=== PATIENT | female | born 1955 | race Caucasian/White ===

== ENCOUNTER 2019-12-18 11:42 | Emergency (ER) | payer OTHER, SELFPAY ==
[2019-12-18 11:51] VITALS: BP 168/82; PULSE 94; RESP 16; TEMP 36.9; O2SAT 98
--- NOTE | 2019-12-18 12:20 | ED.GENADULT ---
HPI - General Adult General Chief complaint: Skin/Abscess/Foreign Body Stated complaint: rash around waist Time Seen by Provider: 12/18/19 12:20 Source: patient and RN notes reviewed Mode of arrival: ambulatory Limitations: no limitations History of Present Illness HPI narrative: 64-year-old female presents with complains of diffused right upper and lower abdomen with redness, swelling, and warmth for the past 5 days. Netta says she could have been bitten by an insect 5 days ago but did not see anything. Area of redness, swelling, and warmth has growing over the pass 4 days. Benadryl by mouth, last 12/17/19 with some relief and Cortisone cream with little relief. Radiation of warmth, redness, and swelling. Exacerbating factors consists of scratching. Denies tenderness. Denies open areas or drainage. The patient reports they have not been diagnosed with COVID-19. The patient reports they are not waiting for the results of a COVID-19 lab test. The patient reports they do not have fever, chills, weakness, fatigue, myalgia, or facial swelling. The patient reports they do not have a new or worsening cough or shortness of breath. Denies chest pain. The patient reports they do not have any rhinorrhea, congestion, sore throat, nausea, vomiting, abdominal pain, and diarrhea. Tolerating po intake well. Denies recent traveling. Denies concerns for COVID-19 or exposures been home since [id number] order except for essential household needs, working, and return home. At this time, patient is not suspected of having COVID-19. Some parts of this dictation were generated by voice recognition software and may contain typographical and/or grammatical inaccuracies. Related Data Home Medications Medication Instructions Recorded Confirmed apixaban [Eliquis] 5 mg PO BID 12/18/19 12/18/19 Allergies Allergy/AdvReac Type Severity Reaction Status Date / Time Penicillins Allergy Hives Verified 12/18/19 12:00 Review of Systems Review of Systems: Narrative: CONSTITUTIONAL: Denies fever, chills, sweats. EYES: Denies visual changes, redness, discharge. ENT: Denies rhinorrhea, congestion, sore throat, otalgia. CARDIOVASCULAR: Denies chest pain, palpitations, edema. RESPIRATORY: Denies dyspnea, wheezing, cough. GASTROINTESTINAL: Denies abdominal pain, nausea, vomiting, diarrhea. GENITOURINARY: Denies dysuria, hematuria, abnormal discharge. SKIN: Complains of diffused right upper and lower abdomen with redness, swelling, and warmth. MUSCULOSKELETAL: Denies acute back pain, joint pain, or myalgia. NEUROLOGIC: Denies numbness or focal weakness. PSYCHIATRIC: Denies anxiety or depression. All systems reviewed & are unremarkable except as noted in HPI and below. [facility] Past Medical History Medical History (Updated 12/18/19 @ 13:12 by SHILO Sosa) delivery delivered Hypertension Pulmonary embolism Surgical History Surgical History (Updated 12/18/19 @ 13:12 by SHILO Sosa) H/O section History of hysterectomy Family History Family History (Updated 12/18/19 @ 13:12 by SHILO Sosa) Father Cerebrovascular accident Mother Heart disease Social History Social History (Updated 12/18/19 @ 13:13 by SHILO Sosa) Substance use: never Living arrangements: with family Occupation/Education: retired Gender identity (if verbalized by the patient): Female Comments At time of signature, agree with nurse past medical, surgical, social, and family history. There is no relevant family history pertinent to the presenting complaint. Exam Narrative: Exam Narrative: GENERAL: This is a well-nourished, well-developed patient, in no apparent distress. HEAD: normocephalic, atraumatic. EYES: PERRL. Sclera clear/white. Vision is grossly intact. CARDIOVASCULAR: Regular rate and rhythm without murmurs, gallops, or rubs. RESPIRATORY: Clear to auscultation. B
== END 2019-12-18 12:56 | disposition home or self-care (01) ==
PROVIDERS: Emergency Provider Nurse Practitioner Family; PCP Family Medicine
DX: L03.311 Cellulitis of abdominal wall (principal); Z79.01 Long term (current) use of anticoagulants; Z86.711 Personal history of pulmonary embolism; R03.0 Elevated blood-pressure reading, without diagnosis of hypertension
CPT/HCPCS: 99213; G0463

== ENCOUNTER → 2021-03-05 12:24 | Outpatient (CLI) | payer MEDICARE, OTHER, SELFPAY ==
--- NOTE | ~2021-03-05 | MM_ITS ---
EXAMINATION: MM screening yo BI w karlee HISTORY: Screening TECHNIQUE: Craniocaudal and mediolateral oblique 3-D tomosynthesis images were obtained and synthetic 2-D images were generated. CAD analysis was submitted and interpreted. COMPARISON: Comparison to multiple prior studies sequentially, with oldest reviewed study dated 03/10. BREAST PARENCHYMAL COMPOSITION: There are scattered areas of fibroglandular density. FINDINGS: Bilateral breast asymmetries are stable. There is no evidence of suspicious mass, calcifica tion, or architectural distortion to suggest malignancy in either breast. There has been no suspiciou s interval change. IMPRESSION: 1. No mammographic evidence of malignancy. 2. Recommend routine screening mammography in one year. BI-RADS Category 2: Benign finding(s). Reviewed, dictated and finalized at location A.
--- NOTE | ~2021-03-05 | DEXA_ITS ---
Bone Density Report Name: Nicky Beauchamp Age: 66 Sex: Female Ethnicity: White Date of : 1955 Indication: postmenopausal; screening for osteoporosis; height loss; hysterectomy; Referring Provider: IRA BARRETT Study: Bone densitometry was performed. Exam Date: March 05, 2021 Accession number: [id number] Bone Density: Region BMD T-score Z-score Classification AP Spine (L1-L4) 1.335 2.6 4.4 Normal Femoral Neck (Left) 1.076 2.0 3.6 Normal Total Hip (Left) 1.324 3.1 4.4 Normal Femoral Neck (Right) 1.043 1.7 3.3 Normal Total Hip (Right) 1.212 2.2 3.4 Normal Total Hip Mean 1.268 2.7 3.9 Normal World Health Organization criteria for BMD impression classify patients as: Normal (T-score at or above -1.0), Osteopenia (T-score between -1.0 and -2.5), or Osteoporosis (T-score at or below -2.5). 10-year Fracture Risk: FRAX not reported because: All T-scores for Spine Total, Hip Total, Femoral Neck at or above -1.0 Previous Exams: Region Exam Age BMD T-score BMD Change BMD Change Date g/cm2 vs Baseline vs Previous AP Spine(L1-L4) 03/05/2021 66 1.335 2.6 0.047 0.045 09/07/2013 58 1.290 2.2 0.002 0.002 05/30/2008 53 1.288 2.2 Total Hip(Left) 03/05/2021 66 1.324 3.1 -0.004 0.009 09/07/2013 58 1.315 3.1 -0.013 -0.013 05/30/2008 53 1.328 3.2 Total Hip(Right) 03/05/2021 66 1.212 2.2 -0.011 0.021 09/07/2013 58 1.192 2.0 -0.032* -0.032* 05/30/2008 53 1.223 2.3 *Denotes significance at 95% confidence level, LSC for AP Spine = 0.022 g/cm2, LSC for Total Hip = 0.027 g/cm2 Clinical Information Provided by Patient: Has the following medical conditions: Hysterectomy Patient maximum height was 67 Menopause Age: 45 No regular weight bearing exercise Drinks caffeinated beverages Onset of menses at age 16 Number of children 3 Impression: The patient has normal bone mass. No significant bone loss was observed. Discussion: LOW RISK OF FRACTURE; BONE DENSITY IS WELL ABOVE THE MINIMUM DESIRABLE LEVEL AND ABOVE AVERAGE FOR AGE AND SEX AT ALL SKELETAL SITES TESTED. This person's bone density is above expected limits for age and sex. This is rarely clinically significant, but should be pursued if there are significant musculoskeletal complaints. The patient should follow a healthful lifestyle (good
== END ==
PROVIDERS: PCP Family Medicine; Visit Provider Family Medicine
DX: Z12.31 Encounter for screening mammogram for malignant neoplasm of breast (principal); Z78.0 Asymptomatic menopausal state
CPT/HCPCS: 77063; 77067; 77080

== ENCOUNTER → 2021-04-30 11:32 | Outpatient (CLI) | payer MEDICARE, OTHER, SELFPAY ==
--- NOTE | ~2021-04-30 | US_ITS ---
EXAMINATION: US renal BI DATE: 04/30/2021 12:10 INDICATION: Chronic kidney disease. TECHNIQUE: Multiple ultrasound grayscale images of the kidneys were obtained. COMPARISON: CT abdomen and pelvis 10/14/2012 FINDINGS: The right kidney measures 9.5 x 4.0 x 3.9 cm. The left kidney measures 9.7 x 4.2 x 5.1 cm. There is c ortical thinning of the kidneys. The kidneys demonstrate normal parenchymal echogenicity. There is no hydronephrosis. The bladder is normal. IMPRESSION: 1. Mild atrophy of the kidneys. No hydronephrosis. Reviewed, dictated and finalized at location A.
== END ==
PROVIDERS: PCP Family Medicine; Visit Provider Family Medicine
DX: E66.9 Obesity, unspecified (principal); N18.4 Chronic kidney disease, stage 4 (severe); I12.9 Hypertensive chronic kidney disease with stage 1 through stage 4 chronic kidney disease, or unspecified chronic kidney disease; Z68.31 Body mass index [BMI] 31.0-31.9, adult; E78.2 Mixed hyperlipidemia; R73.03 Prediabetes; N26.1 Atrophy of kidney (terminal)
CPT/HCPCS: 76775

== ENCOUNTER 2022-08-09 12:09 | Outpatient (CLI) | payer MEDICARE, OTHER, SELFPAY ==
--- NOTE | ~2022-08-09 | US_ITS ---
Duplex Sonography of the right extremity: Indication: Swelling Findings: Sagittal and transverse B-mode images as well as color-flow imaging were performed on the r ight femoral and popliteal veins. B-mode examination was done without and with compression in the tr ansverse plane. There is good visualization of the common femoral, proximal profunda femoral, superf icial femoral, greater saphenous, and popliteal veins. Right popliteal vein is noncompressible of absence of flow, compatible with DVT. The vertebral arteri es distally into the right peroneal and posterior tibial veins. The more proximal deep venous structures in the right lower extremity are patent, with normal flow an d compressibility. Impression: DVT involving the right popliteal vein, propagating distally into the right posterior tibial and gibran chandu veins. Reviewed, dictated and finalized at location M. RCANE PLANTER Impression: DVT involving the right popliteal vein, propagating distally into the right pos terior tibial and peroneal veins.
--- NOTE | ~2022-08-09 | XR_ITS ---
XR knee RT 3V DATE: 08/09/2022 12:32 INDICATION: Right knee effusion TECHNIQUE: AP, lateral, sunrise views COMPARISON: 12/29/2016 right knee FINDINGS: There is prominent distention of the suprapatellar bursa consistent with knee joint effusio n. There is mild periarticular spurring at the inferior compartment and minimal particular spurring at t he patellofemoral and lateral compartments. Knee joint spaces are relatively preserved. No fracture, dislocation, periosteal reaction or bone destruction, radiopaque intra-articular loose b safia or chondrocalcinosis. IMPRESSION: Prominent suprapatellar knee joint effusion Mild tricompartment osteoarthritis Reviewed, dictated and finalized at location L. RVISOR CONTINGENTS
== END 2022-08-09 12:10 | disposition home or self-care (01) ==
PROVIDERS: PCP Family Medicine; Visit Provider Nurse Practitioner
DX: M25.461 Effusion, right knee (principal); R60.0 Localized edema; M17.11 Unilateral primary osteoarthritis, right knee; I82.431 Acute embolism and thrombosis of right popliteal vein; I82.441 Acute embolism and thrombosis of right tibial vein; I82.451 Acute embolism and thrombosis of right peroneal vein
CPT/HCPCS: 73562; 93971

== ENCOUNTER 2022-12-30 08:50 | Outpatient (CLI) | payer MEDICARE, OTHER, SELFPAY ==
--- NOTE | ~2022-12-30 | US_ITS ---
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 TECHNIQUE: Grayscale ultrasound images without and with compression and Doppler ultrasound images of the bilateral lower extremity veins were obtained. COMPARISON: None. FINDINGS: The visualized portions of right common femoral vein, profunda (deep) femoral vein, femoral vein, pop liteal vein, peroneal veins, posterior tibial veins, and greater saphenous vein outflow are patent. T he right great saphenous vein measures 6 mm in the upper thigh, 5 mm in the lower thigh, and 6 mm in the calf. The right small saphenous vein measures 4 mm in the upper calf and 3 mm in the lower calf. No reflux. The visualized portions of left common femoral vein, profunda femoral vein, femoral vein, popliteal v ein, peroneal veins, posterior tibial veins, and greater saphenous vein outflow are patent. Left grea ter saphenous vein measures 5 mm in the upper thigh, 3 mm in the lower thigh, and 4 mm in the calf. L eft small saphenous vein measures 4 mm in the upper calf and 3 mm in the lower calf. No reflux. IMPRESSION: 1. No deep venous thrombosis. 2. No reflux. Reviewed, dictated and finalized at location A.
--- NOTE | ~2022-12-30 | US_ITS ---
EXAMINATION: US arterial ankle brachial ind DATE: 12/30/2022 10:12 INDICATION: Non-pressure chronic ulcer of right lower extremity. TECHNIQUE: Segmental pressures and plethysmographic and Doppler waveforms of the brachial and lower e xtremity arteries were obtained. COMPARISON: None. FINDINGS: Right and left brachial artery pressures of 172 mm Hg and 166 mm Hg, respectively, are concordant (no rmal difference <= 30 mmHg). The right ankle-brachial index (HARSH) could not be measured due to inability to cuff occlude the arter ies (normal >= 0.9-1.0). The right great toe-brachial index (TBI) is 0.59 (normal >= 0.65). Arterial Doppler waveforms are biphasic in posterior tibial artery and monophasic in dorsalis pedis. The left HARSH is 1.10. The left TBI is 0.48. Arterial Doppler waveforms are biphasic at the ankle. IMPRESSION: 1. Decreased TBIs, normal left HARSH, and nondiagnostic right HARSH, consistent with arterial occlusive d isease. Note that ABIs may be overestimated if arteries are calcified. Reviewed, dictated and finalized at location A. IMPRESSION: 1. Decreased TBIs, normal left HARSH, and nondiagnostic right HARSH, consistent wit h arterial occlusive disease. Note that ABIs may be overestimated if arteries a re calcified.
== END 2022-12-30 08:51 | disposition home or self-care (01) ==
LOC: ANHIMG 08:55
PROVIDERS: PCP Family Medicine
DX: L97.911 Non-pressure chronic ulcer of unspecified part of right lower leg limited to breakdown of skin (principal); I79.8 Other disorders of arteries, arterioles and capillaries in diseases classified elsewhere; I82.591 Chronic embolism and thrombosis of other specified deep vein of right lower extremity
CPT/HCPCS: 93922; 93970

== ENCOUNTER 2023-01-11 08:34 | Outpatient (CLI) | payer MEDICARE, OTHER, SELFPAY ==
--- NOTE | ~2023-01-11 | US_ITS ---
EXAMINATION: US arterial duplex LE RT DATE: 01/11/2023 09:45 INDICATION: Peripheral arterial occlusive disease TECHNIQUE: Multiple grayscale and Doppler ultrasound images of the arteries of the right lower limb w ere obtained. COMPARISON: None FINDINGS: There are triphasic arterial waveforms with brisk systolic upstrokes throughout the arteries of the r ight lower limb. There is relatively nonturbulent laminar flow extending distally to the popliteal, a nterior tibial and proximal posterior tibial arteries. No evident hemodynamically significant atheros clerotic disease. IMPRESSION: 1. No evident hemodynamically significant atherosclerotic disease with triphasic waveforms and brisk systolic upstrokes throughout the arteries of the right lower limb. Reviewed, dictated and finalized at location A. IMPRESSION: 1. No evident hemodynamically significant atherosclerotic disease with triphasi c waveforms and brisk systolic upstrokes throughout the arteries of the right l ower limb.
== END 2023-01-11 08:35 | disposition home or self-care (01) ==
PROVIDERS: PCP Family Medicine
DX: L97.911 Non-pressure chronic ulcer of unspecified part of right lower leg limited to breakdown of skin (principal); I82.591 Chronic embolism and thrombosis of other specified deep vein of right lower extremity; I73.9 Peripheral vascular disease, unspecified
CPT/HCPCS: 93926

== ENCOUNTER → 2023-06-14 13:37 | Outpatient (CLI) | payer MEDICARE, OTHER, SELFPAY ==
--- NOTE | ~2023-06-14 | MM_ITS ---
EXAMINATION: MM screening yo BI w karlee HISTORY: Screening mammogram TECHNIQUE: Craniocaudal and mediolateral oblique 3-D tomosynthesis images were obtained and synthetic 2-D images were generated. CAD analysis was submitted and interpreted. COMPARISON: 03/05/2021 bilateral screening mammogram BREAST PARENCHYMAL COMPOSITION: There are scattered areas of fibroglandular density. FINDINGS: Occasional bilateral small low-density circumscribed benign-appearing nodules. There is no evidence of suspicious mass, calcification, or architectural distortion to suggest malignancy in eith er breast. There has been no suspicious interval change. IMPRESSION: 1. No mammographic evidence of malignancy. 2. Recommend routine screening mammography in one year. BI-RADS Category 2: Benign finding(s). Reviewed, dictated and finalized at location A. ICE ENGINEER
== END ==
PROVIDERS: PCP Family Medicine; Visit Provider Family Medicine
DX: Z12.31 Encounter for screening mammogram for malignant neoplasm of breast (principal)
CPT/HCPCS: 77063; 77067

== ENCOUNTER 2023-07-10 20:16 | Emergency (ER) | payer MEDICARE, OTHER, SELFPAY ==
[2023-07-10 20:16] VITALS: BP 179/78; PULSE 76; RESP 16; TEMP 36.4; O2SAT 100
--- NOTE | 2023-07-10 23:09 | ED.WOUNDLAC ---
HPI - Wound/Laceration General Chief Complaint: Wound/Laceration Stated Complaint: laceration Time Seen by Provider: 07/10/23 22:22 History of Present Illness HPI narrative: 68-year-old female who is chronically anticoagulated on Xarelto for prior DVT reports for evaluation for laceration to her left 2nd finger that occurred around 3 hours ago. Patient states she was cutting a dog treat and half when accidentally cut her finger. Bleeding is controlled. Last tetanus unknown. Related Data Home Medications Medication Instructions Recorded Confirmed multivitamin with [id number] tablet PO 06/18/19 04/29/23 400 mcg-120 mg tablet (One Daily Women 50 Plus) rivaroxaban 10 mg tablet (Xarelto) 10 mg PO DAILY 01/25/23 04/29/23 Allergies Allergy/AdvReac Type Severity Reaction Status Date / Time CURRY Inhibitors Allergy Unknown Rash Verified 04/26/23 14:52 Penicillins Allergy Unknown rash and Verified 04/26/23 14:52 hives Review of Systems Review of Systems: CONSTITUTIONAL: Denies fever, chills, or sweats. EYES: Denies visual changes, redness, or discharge. ENT: Denies rhinorrhea, congestion, sore throat, or otalgia. CARDIOVASCULAR: Denies chest pain, palpitations, or edema. RESPIRATORY: Denies cough or dyspnea. GASTROINTESTINAL: Denies abdominal pain, nausea, vomiting, or diarrhea. GENITOURINARY: Denies dysuria or hematuria. SKIN: See HPI MUSCULOSKELETAL: Denies back pain, joint pain, or myalgia. NEUROLOGIC: Denies headache, numbness, or weakness. PSYCHIATRIC: Denies anxiety or depression. [facility] Past Medical History Medical History delivery delivered DVT (deep venous thrombosis) Edema of right lower leg Effusion, right knee Hx of deep venous thrombosis Hx pulmonary embolism Prediabetes Swelling of right knee joint Surgical History Surgical History H/O section History of hysterectomy Family History Family History Father Patient's father is Family history of diabetes mellitus in first degree relative Cerebrovascular accident Mother Family history of heart disease in male family member before age 55 Father Cerebrovascular accident Mother Heart disease Social History Social History Smoking status: Never smoker Alcohol intake: never Substance use: never Substance use type: does not use Lack of Transportation: No Lack of Food: Never True Current Housing: I Have Housing Concerned About Future Housing: No Difficulty Paying Gas/Electric Bills: No Difficulty Paying for Meds: No Currently Unemployed: No Education: High School Diploma/GED Difficulty w/ Childcare or Family Care: No Living arrangements: with family Occupation/Education: retired Gender identity (if verbalized by the patient): Female Exam Narrative: GENERAL: Well-appearing, well-nourished, and in no acute distress. HEAD: Normocephalic, atraumatic. NECK: Supple. EXTREMITIES: Normal range of motion. No edema. SKIN: Left 2nd digit with a 0.5cm very superficial linear laceration to the dorsal aspect of the distal phalanx with good approximation. The laceration approaches the nail border but does not interrupt the nail. No subcutaneous or deep structures visualized. Bleeding controlled. No foreign bodies. Full ROM of finger. Cap refill less than 2. Sensation intact. NEURO: No focal deficits. Alert and oriented x3 Course Vital Signs Vital signs: Vital Signs Temperature 97.6 F 07/10/23 20:16 Pulse Rate 76 07/10/23 20:16 Respiratory Rate 16 07/10/23 20:16 Blood Pressure 179/78 H 07/10/23 20:16 Pulse Oximetry 100 07/10/23 20:16 Oxygen Delivery Room Air 07/10/23 20:16 Temperature 97.6 F
[2023-07-10] MEDS: TETANUS,DIPHTHERIA,AC PERTUSSIS ADULT (0.5 ML) BOOSTRIX IM (23:15)
[2023-07-10 23:20] VITALS: BP 165/82; PULSE 72; RESP 19; O2SAT 99
== END 2023-07-10 23:21 | disposition home or self-care (01) ==
PROVIDERS: Emergency Provider Physician Assistant; PCP Family Medicine
DX: S61.211A Laceration without foreign body of left index finger without damage to nail, initial encounter (principal); Z86.718 Personal history of other venous thrombosis and embolism; Z79.01 Long term (current) use of anticoagulants; W26.0XXA Contact with knife, initial encounter; Z23 Encounter for immunization
CPT/HCPCS: 90471; 90715; 99282